=== PATIENT | male | born 1975 | race Two or more races ===

== ENCOUNTER 2019-03-11 13:44 | Emergency (ER) | payer BC ==
[~2019-03-11] VITALS: Ht 190.5 cm; Wt 108.9 kg
[2019-03-11 13:52] VITALS: BP 108/70
[2019-03-11] MEDS ORDERED: AMOXICILLIN500 MG ORAL (14:15)
[2019-03-11 14:24] VITALS: BP 108/70
--- NOTE | 2019-03-11 14:40 | Emergency Room Report ---
History of Present Illness General Chief Complaint: Sore Throat Source: Patient Present Illness HPI 43-year-old male complaining of sore throat x3days. Pain is 3/10, sharp and throbbing in quality. No aggravating/ relieving factor. Denies fever, cough, vomiting, diarrhea, abdominal pain, rash. Denies recent travel or sick contact. Allergies: Coded Allergies: No Known Allergies (Unverified , 03/11/19) Patient History Past Medical History: other - hypothyroidism Past Surgical History: other - hemorrhoidectomy Social History: Reports: smoking - , VAPE; Denies: alcohol use, drug use Nursing Documentation-[facility] Hx Cardiac Problems: No - hemroidectomy 01/31/19 Hx Asthma: Yes Review of Systems All Other Systems: negative except mentioned in HPI Physical Exam Vital Signs Date Time Temp Pulse Resp B/P (MAP) Pulse Ox O2 Delivery O2 Flow Rate FiO2 03/11/19 13:52 98.8 71 22 108/70 (83) 95 Room Air Sp02 EP Interpretation: reviewed, normal General Appearance: no apparent distress, alert, GCS 15, non-toxic ENT: TMs + canals normal, moist mucus membranes, pharyngeal erythema - , no peritonsillar abscess. Respiratory: chest non-tender, lungs clear, normal breath sounds, speaking full sentences Cardiovascular #1: regular rate, rhythm, no edema Neurologic: alert, oriented x3, responsive, motor strength/tone normal, sensory intact, speech normal Skin: no rash, warm/dry Lymphatic: adenopathy - cervical Medical Decision Making PA Attestation This patient was seen under the direct supervision of Dr. Zaidi who directed all aspects of care and diagnostic interpretation. Diagnostic Impression: Primary Impression: Acute pharyngitis ER Course ED course HPI: 43-year-old male complaining of sore throat x3days. Pain is 3/10, sharp and throbbing in quality. No aggravating/ relieving factor. Denies fever, cough, vomiting, diarrhea, abdominal pain, rash. Denies recent travel or sick contact. Patient is well-appearing, nontoxic in appearance. Speaking in full sentences without respiratory distress. No hot potato voice. No evidence of peritonsillar abscess. Centor criteria: 2 (absence of cough, tender cervical adenopathy). Ddx: Acute pharyngitis versus URI versus allergies. HPI & PE consistent with: Acute pharyngitis Orders/ Interventions: None Disposition: Patient stable for discharge home. Prescription for amoxicillin 500 mg BID x 10 days given, advised to start antibiotics in 2 days if symtoms. Supportive care. Increase oral hydration. Salt water gargles. Advised bland diet. May take OTC acetaminophen or ibuprofen for pain or fever. Followup with PCP in 2 days or return to ER if worsening symptoms, new symptoms , or sudden change in condition. Please note that this Emergency Department Report was dictated using [employer] inspector technology software, occasionally this can lead to erroneous entry secondary to interpretation by the dictation equipment. Last Vital Signs Date Time Temp Pulse Resp B/P (MAP) Pulse Ox O2 Delivery O2 Flow Rate FiO2 03/11/19 14:24 98.8 22 108/70 95 Room Air 03/11/19 13:52 71 Disposition: HOME, SELF-CARE Condition: Stable Scripts Amoxicillin* (AMOXIL*) 500 Mg Capsule 500 MG ORAL EVERY 12 HOURS for 10 Days, #20 CAP Prov: Lisa Graf 03/11/19 Referrals: NOT CHOSEN [facility]/,REFERRING (PCP) Patient Instructions: Sore Throat Additional Instructions: Increase oral hydration. Advised bland diet. Followup with PCP in 2 days or return to ED if worsening symptoms, new symptoms or sudden change in condition. Lisa Graf Mar 11, 2019 14:40
== END 2019-03-11 14:27 | disposition home or self-care (01) ==
LOC: EMR 14:10
DX: J02.9 Acute pharyngitis, unspecified (principal); F17.200 Nicotine dependence, unspecified, uncomplicated
CPT/HCPCS: 99282